=== PATIENT | female | born 1950 | race Caucasian/White ===

== ENCOUNTER 2017-10-18 21:40 | Emergency (ER) | payer MEDICARE ==
[2017-10-18] MEDS ORDERED: Glucagon* 1 MG VIAL IM ONE (22:43)
--- NOTE | 2017-10-18 23:30 | ED ---
Throat Pain/Nasal Congestion - HPI Summary HPI Summary: This is scribe Zackery Pleitez documenting for attending Dr. Delfin Ma MD. A 67 y/o female presents to ED c/o foreign substance stuck in throat. As per triage, " Pt with hx of esophageal strictures/dilation, states that she was eating steak and now feels as if it is lodged. Airway is patent". Currently, the patient feels fine and thinks she had vomited (5th time) the foreign body out. According to the patient, this has happened before and she stated that her throat constricts and traps whatever she is eating. She noted that it usually happens when she eats something dry, however, even though she had a very moist meal, she ate a bite of her husbands steak. She came to the ED because her husbands sister who is a physician recommended her to come. She noted that she feels that she can swallow her saliva now, however, she still feels like her throat is opening/closing. With drinking water, she can feel her throat closing. As per nurse, upon drinking water, the patient cannot keep water down. - History of Current Complaint Chief Complaint: EDForeignBodyEsophag Time Seen by Provider: 10/18/17 22:17 Hx Obtained From: Patient Onset/Duration: Sudden Onset, Still Present Severity: Moderate - 4/10 Cough: None - Allergies/Home Medications Allergies/Adverse Reactions: Allergies Allergy/AdvReac Type Severity Reaction Status Date / Time No Known Allergies Allergy Verified 10/18/17 21:48 PMH/Surg Hx/FS Hx/Imm Hx Endocrine/Hematology History: Denies: Hx Diabetes Cardiovascular History: Denies: Hx Hypertension - Immunization History Date of Tetanus Vaccine: UTD Immunizations Up to Date: Yes Infectious Disease History: No Infectious Disease History: Denies: Traveled Outside the [place] in Last 30 Days - Family History Known Family History: Positive: Other - Lymphatic cancer (mother) Negative: Hypertension, Diabetes - Social History Alcohol Use: Occasionally Substance Use Type: Reports: None Smoking Status (MU): Never Smoked Tobacco Review of Systems Negative: Fever Positive: Other - POSITIVE: Resolved foreign body lodged in throat. Pt cannot keep water down. Feels throat is opening/closing. Positive: Vomiting All Other Systems Reviewed And Are Negative: Yes Physical Exam - Summary Physical Exam Summary: Appearance: Well-appearing, Well-nourished, lying in bed comfortable Skin: Warm, dry, no obvious rash Eyes: sclera anicteric, no conjunctival pallor ENT: mucous membranes moist Neck: deferred Respiratory: No signs of respiratory distress Cardiovascular: Appears well perfused, pulses are nml Abdomen: deferred Musculoskeletal: Moving all 4 extremities without obvious discomfort Neurological: Awake and alert, mentation is normal, speech is fluent and appropriate Psychiatric: affect is normal, does not appear anxious or depressed Triage Information Reviewed: Yes Vital Signs On Initial Exam: Initial Vitals Temp Pulse Resp BP Pulse Ox 97.9 F 85 20 156/97 100 10/18/17 21:42 10/18/17 21:42 10/18/17 21:42 10/18/17 21:42 10/18/17 21:42 Vital Signs Reviewed: Yes Diagnostics - Vital Signs Vital Signs Temp Pulse Resp BP Pulse Ox 10/18/17 22:41 82 20 171/103 96 10/18/17 21:42 97.9 F 85 20 156/97 100 - Laboratory Lab Statement: Any lab studies that have been ordered have been reviewed, and results considered in the medical decision making process. Re-Evaluation - Re-Evaluation First Eval Re-Evaluation Time: 22:30 Comment: Patient is not able to keep water down. Discharge - Discharge Plan Referrals: Courtney Martin MD [Primary Care Provider] -
[2017-10-18 23:38] VITALS: BP 134/79
== END 2017-10-19 00:08 | disposition home or self-care (01) ==
LOC: ED 21:40
DX: R09.89 Other specified symptoms and signs involving the circulatory and respiratory systems (principal); R11.10 Vomiting, unspecified
CPT/HCPCS: 96372; 99283; J1610